=== PATIENT | female | born 1960 | race Native Hawaiian/Other Pacific Islander ===

== ENCOUNTER 2018-03-26 20:51 | Emergency (ER) | payer BC ==
[~2018-03-26] VITALS: Ht 175.3 cm; Wt 81.6 kg
[~2018-03-26 20:51] MED LIST: CETI10TA PO; MINIVELLE0.05 MG TD; MULTI VITAMN OR
[2018-03-26 22:30] LABS: PLATELET COUNT 225 K/uL (152-353); POTASSIUM 3.6 mmol/L (3.6-5.2)
[2018-03-27 01:06] VITALS: BP 147/71; TEMP 98.1
== END 2018-03-27 01:08 | disposition home or self-care (01) ==
LOC: ED 20:51
DX: S40.011A Contusion of right shoulder, initial encounter (principal); S20.219A Contusion of unspecified front wall of thorax, initial encounter; S70.02XA Contusion of left hip, initial encounter; V29.3XXA Motorcycle rider (driver) (passenger) injured in unspecified nontraffic accident, initial encounter
CPT/HCPCS: 36415; 80053; 81000; 85027; 96374; 96375; 99284; J1885; J2175; J2550

== ENCOUNTER 2022-07-20 10:50 | Outpatient (CLI) | payer BC | END 2022-07-20 20:51 | disposition home or self-care (01) | LOC: US 10:50 | PROVIDERS: ATTEND Nurse Practitioner Family | DX: R42 Dizziness and giddiness (principal); R26.89 Other abnormalities of gait and mobility ==